=== PATIENT | female | born 1960 | race Hispanic/Latino ===

== ENCOUNTER 2022-01-04 18:41 | Emergency (ER) | payer MEDICARE ==
[2022-01-04] MEDS ORDERED: FAMOTIDINE 20 MG/2 ML INJ IV ONE (20:05)
--- NOTE | 2022-01-04 20:11 | Emergency Department Report ---
ED General Adult HPI - General Stated complaint: ALLERGIC REACTION Time Seen by Provider: 01/04/22 19:53 Source: patient, EMS - History of Present Illness Initial comments: Patient is 61 years old female with history of depression. Patient brought to the emergency room from a local psychiatric facility, [facility] for evaluation of allergic reaction. Patient stated the symptoms started after she ate her dinner. Patient is complaining of generalized rash and itching. She denied any difficulty swallowing or difficulty breathing. Patient received Benadryl 50 mg IV by EMS and he stated that it helped a lot with her symptoms. Patient refused steroid stating that records are more anxiety. - Related Data Allergies Allergy/AdvReac Type Severity Reaction Status Date / Time Penicillins Allergy Swelling Verified 01/04/22 20:44 naloxone [From Narcan] AdvReac Unknown Verified 01/04/22 20:45 ED Review of Systems ROS: Stated complaint: ALLERGIC REACTION Other details as noted in HPI Comment: All other systems reviewed and negative Constitutional: denies: chills, fever Respiratory: denies: cough, shortness of breath, SOB with exertion, SOB at rest Cardiovascular: denies: chest pain Gastrointestinal: denies: abdominal pain, nausea, vomiting, diarrhea Musculoskeletal: denies: back pain Skin: rash, pruritus Neurological: denies: headache, weakness, numbness, paresthesias ED Physical Exam - General General appearance: alert, in no apparent distress - Head Head exam: Present: atraumatic, normocephalic, normal inspection - Eye Eye exam: Present: normal appearance - ENT ENT exam: Present: normal exam, normal orophraynx, mucous membranes moist - Neck Neck exam: Present: normal inspection, full ROM. Absent: tenderness, meningismus - Respiratory Respiratory exam: Present: normal lung sounds bilaterally - Cardiovascular Cardiovascular Exam: Present: regular rate, normal rhythm, normal heart sounds - GI/Abdominal GI/Abdominal exam: Present: soft, normal bowel sounds. Absent: distended, te nderness, guarding, rebound, rigid, organomegaly, mass, bruit, hernia - Extremities Exam Extremities exam: Present: normal inspection, full ROM, normal capillary refill. Absent: tenderness - Back Exam Back exam: Present: normal inspection, full ROM. Absent: CVA tenderness (R), CVA tenderness (L) - Neurological Exam Neurological exam: Present: alert, oriented X3, CN II-XII intact, normal gait, reflexes normal. Absent: motor sensory deficit - Psychiatric Psychiatric exam: Present: normal mood. Absent: homicidal ideation, suicidal ideation - Skin Skin exam: Present: warm, intact, normal color ED Medical Decision Making - Medical Decision Making Patient is 61 years old female with history of depression. Patient brought to the emergency room from a local psychiatric facility, [facility] for evaluation of allergic reaction. Patient stated the symptoms started after she ate her dinner. Patient is complaining of generalized rash and itching. She denied any difficulty swallowing or difficulty breathing. Patient received Benadryl 50 mg IV by EMS and he stated that it helped a lot with her symptoms. Patient refused steroid stating that records are more anxiety. Patient received Pepcid 20 mg IV. Patient stated that she is feeling much better. Patient remained stable with stable vital signs in the ER. Patient given prescription for Benadryl and Pepcid and advised to follow-up with her primary doctor in the next 2 to 3 days and to return to the ER if she develop any new symptoms. Critical care attestation.: If time is entered above; I have spent that time in minutes in the direct care of this critically ill patient, excluding procedure time. ED Disposition Clinical Impression: Acute allergic reaction Disposition: 01 HOME / SELF CARE / HOMELESS Is pt being admited?: No Condition: Stable Instructions: Allergies, Adult, [id number] Referrals: PRIMARY CARE, [Referring] - 3-5 Days
[2022-01-04] MEDS ORDERED: FAMOTIDINE 20 MG TAB PO ONE (21:34)
[2022-01-04 22:53] VITALS: BP 122/74
== END 2022-01-04 22:51 | disposition home or self-care (01) ==
LOC: ED 18:41
DX: T78.40XA Allergy, unspecified, initial encounter (principal); Z88.0 Allergy status to penicillin; Z91.09 Other allergy status, other than to drugs and biological substances
CPT/HCPCS: 99283